=== PATIENT | female | born 1990 | race Caucasian/White ===

== ENCOUNTER 2019-01-02 23:58 | Emergency (ER) | payer BC ==
[~2019-01-02] VITALS: Ht 170.2 cm; Wt 80.7 kg
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
--- NOTE | 2019-01-03 02:31 | NUR ---
EMT AT BEDSIDE FOR WOUND CLEANING
--- NOTE | 2019-01-03 02:35 | NUR ---
XRAY AT BEDSIDE
--- NOTE | 2019-01-03 04:00 | NUR ---
EMT AT BEDSIDE FOR WOUND DRESSING.
--- NOTE | 2019-01-03 04:13 | NUR ---
Patient discharged to home in stable condition. Written and verbal after care instructions given. Patient verbalizes understanding of instruction.Pt ambulatory with a steady gait
[2019-01-03 04:16] VITALS: BP 121/70
== END 2019-01-03 04:16 | disposition home or self-care (01) ==
LOC: ER 01-03 00:16
DX: S91.202A Unspecified open wound of left great toe with damage to nail, initial encounter (principal); W18.49XA Other slipping, tripping and stumbling without falling, initial encounter; Y93.89 Activity, other specified; Y92.89 Other specified places as the place of occurrence of the external cause; Y99.8 Other external cause status
CPT/HCPCS: 73660; 99283; A6403